=== PATIENT | female | born 2000 | race Caucasian/White ===

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

== ENCOUNTER 2022-09-10 20:25 | Emergency (ER) | payer BC ==
[2022-09-10 22:02] VITALS: BP 130/64; PULSE 85
[2022-09-10 22:05] VITALS: O2SAT 98
--- NOTE | 2022-09-10 22:05 | ERPHSYRPT ---
- History of Present Illness Source: patient, other (Aunt) Exam Limitations: no limitations Patient Subjective Stated Complaint: pt states "sore place on labia". reports she noticed it on 09/08 with pain, the site for last 2 months has had a tiny small bump. Triage Nursing Assessment: pt ambulated to room 10 independently with slow steady gait. pt is alert and oriented times three, able to speak in complete sentences, move all extremities, and with resp even and unlabored. small red bump noted above clitoris. skin is red, shiny, and taut. pt reports pain to site that started on Tuesday but bump has been there approx 2 months. there is no open area or drainage noted. there is no "head" on bump. Physician History: 21 yo WF w small, painful lesion superior to her clitoris x 3 days. Pt states that it is mildly painful. She denies vag discharge/dysuria/hematuria/fever/STD exposure. Timing/Duration: other (3 days) Activites at Onset: none Quality: sharpness Onset Location: other (Superiro to clitoris) Severity of Pain-Max: moderate Severity of Pain-Current: moderate Prior abdominal problems: none Sexual intercourse history: non-contributory Modifying Factors: Improves With: nothing Associated Symptoms: denies symptoms Allergies/Adverse Reactions: No Known Drug Allergies Allergy (Verified 08/08/16 01:01) Home Medications: lamoTRIgine [Lamictal] 200 mg PO DAILY 02/23/13 [History] Norgestrel-Ethinyl Estradiol [Elinest] 1 each PO DAILY 09/10/22 [History] Hx Tetanus, Diphtheria Vaccination/Date Given: Yes Hx Influenza Vaccination/Date Given: No Hx Pneumococcal Vaccination/Date Given: No Travel Risk - International Travel Have you traveled outside of the country in past 3 weeks: No - Coronavirus Screening Are you exhibiting any of the following symptoms?: No - Vaccine Status Have you recieved a Covid-19 vaccination: Yes 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[employer]) - Vaccination Dates Date of 2cond Vaccination (if applicable): 2021 - Review of Systems Constitutional: No Symptoms Eyes: No Symptoms Ears, Nose, & Throat: No Symptoms Respiratory: No Symptoms Cardiac: No Symptoms Abdominal/Gastrointestinal: No Symptoms Musculoskeletal: No Symptoms Skin: No Symptoms Neurological: No Symptoms Psychological: No Symptoms Endocrine: No Symptoms Hematologic/Lymphatic: No Symptoms Immunological/Allergic: No Symptoms - Past Medical History Pertinent Past Medical History: Yes Neurological History: Seizures ENT History: No Pertinent History Cardiac History: No Pertinent History Respiratory History: No Pertinent History Endocrine Medical History: No Pertinent History Musculoskeletal History: No Pertinent History GI Medical History: No Pertinent History History: No Pertinent History Psycho-Social History: Depression Female Reproductive Disorders: No Pertinent History Other Medical History: no sizures for several years - Past Surgical History Past Surgical History: Yes Neuro Surgical History: No Pertinent History Cardiac: No Pertinent History Respiratory: No Pertinent History Gastrointestinal: No Pertinent History Genitourinary: No Pertinent History Musculoskeletal: No Pertinent History Female Surgical History: No Pertinent History Other Surgical History: p. cyst removal, 4 wisdom teeth removal 2 days ago - Social History Smoking Status: Never smoker Exposure to second hand smoke: Yes Alcohol Use: None Drug Use: none Patient Lives Alone: Yes Significant Family History: no pertinent family hx - Female History Hx Last Menstrual Period: 09/04/22 Hx Now: No - Nursing Vital Signs Nursing Vital Signs: Initial Vital Signs Temperature 98.5 F 09/10/22 21:07 Pulse Rate 88 09/10/22 21:07 Respiratory Rate 16 09/10/22 21:07 Blood Pressure 120/64 09/10/22 21:07 O2 Sat by Pulse Oximetry 98 09/10/22 21:07 Pain Scale Pain Intensity 6 WNL - Physical Exam General Appearance: no apparent distress Eye Exam: PERRL/EOMI, eyes nml inspection Ears, Nose, Throat Exam: normal ENT inspection, TMs normal, pharynx normal, moist mucous membranes Neck Exam: normal inspection, non-tender, supple, full range of motion, No meningismus, No mass, No Brudzinski, No Kernig's, No carotid bruit Respiratory Exam: normal breath sounds, lungs clear, airway intact, No respiratory distress Cardiovascular Exam: regular rate/rhythm, normal heart sounds, normal peripheral pulses, capillary refill <2 sec, No murmur Gastrointestinal/Abdomen Exam: soft, normal bowel sounds, No tenderness Pelvic Exam: other (Small, early abscess superior to clitoris/No drainage from lesion.No vaginal discharge) Back Exam: normal inspection, normal range of motion, No CVA tenderness Extremity Exam: normal inspection, normal range of motion Neurologic Exam: alert, oriented x 3, cooperative, 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 Counseled pt/family regarding: diagnosis, need for follow-up Medical Desision Making - Risk of complications The pt has a mod risk of morbidity or mortality based on: Need for prescription drug management - Departure Departure Disposition: Home Clinical Impression: Abscess Condition: Stable Critical Care Time: No Referrals: LAZ SAINI NP [Primary Care Provider] - Follow up/PCP as directed Instructions: Skin Abscess Additional Instructions: Warm compresses Motrin/tylenol as needed for pain Start Doxycycline twice a day for 10 days Follow up with your family MD or [employer] production line on tuesday Return to ER for increasing pain, increasing swelling, or temperature greater than 100.5 Prescriptions: Doxycycline Monohydrate 100 mg PO BID 10 Days #20 cap
== END 2022-09-10 22:19 | disposition home or self-care (01) ==
LOC: ED 20:25
DX: N76.4 Abscess of vulva (principal); R10.2 Pelvic and perineal pain; Z79.899 Other long term (current) drug therapy
CPT/HCPCS: 99281